=== PATIENT | female | born 1985 | race Two or more races ===

== ENCOUNTER 2017-07-31 20:24 | Emergency (ER) | payer OTHER ==
[~2017-07-31] VITALS: Ht 160 cm; Wt 74.1 kg
[2017-07-31 20:26] VITALS: BP 155/91
[2017-07-31] MEDS ORDERED: LORazepam 1MG TABLET ONE (20:44)
[2017-07-31] MEDS ORDERED: LORazepam 1MG TABLET PO ONE (21:00)
[2017-07-31] MEDS ORDERED: IBUPROFEN 800 MG TABLET ONE (21:50)
[2017-07-31] MEDS ORDERED: IBUPROFEN 800 MG TABLET PO ONE (22:00)
== END 2017-07-31 22:59 | disposition home or self-care (01) ==
LOC: ED 22:53
DX: F41.1 Generalized anxiety disorder (principal); I10 Essential (primary) hypertension
CPT/HCPCS: 93005; 99283

== ENCOUNTER 2018-06-29 00:59 | Emergency (ER) | payer OTHER ==
[~2018-06-29] VITALS: Ht 165.1 cm; Wt 76.1 kg
[2018-06-29] MEDS ORDERED: LOSA50TA14 PO (01:05)
--- NOTE | 2018-06-29 01:26 | NUR ---
PT HERE FOR PALPITATIONS THAT STARTED 30 MIN AGO. HR IMPROVED SINCE TRIAGE. XRAY AT BEDSIDE. 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 CALL LIGHT IN REACH
[2018-06-29] MEDS ORDERED: LORazepam 1MG TABLET PO ONE (01:30)
[2018-06-29] MEDS ORDERED: LORazepam 1MG TABLET ONE (01:32)
[2018-06-29 01:37] LABS: BASOPHILS # (AUTO) 0.02 x10^3/uL (0-0.1); BASOPHILS % (AUTO) 0 % (0-1); EOSINOPHILS # (AUTO) 0.08 x10^3/uL (0-0.4); EOSINOPHILS % (AUTO) 1 % (1-7); LYMPHOCYTES % (AUTO) 46 % (22-44); MD NO; MEAN CORPUSCULAR HEMOGLOBIN 30.2 pg (27.0-34.8); MEAN CORPUSCULAR HGB CONC 34.3 g/dL (32.4-35.8); MEAN CORPUSCULAR VOLUME 88.2 fL (80-100); MEAN PLATELET VOLUME 8.8 fL (7.4-10.4); MONOCYTES # (AUTO) 0.56 x10^3/uL (0.2-0.8); MONOCYTES % (AUTO) 7 % (2-9); NEUTROPHILS # (AUTO) 3.51 x10^3/uL (1.8-6.8); NEUTROPHILS % (AUTO) 45 % (42-75); PLATELET COUNT 226 x10^3/uL (130-400); RED BLOOD COUNT 4.54 x10^6/uL (3.82-5.3); RED CELL DISTRIBUTION WIDTH 13.5 % (9.6-15.2)
[2018-06-29 01:44] LABS: ALBUMIN 3.9 g/dL (3.4-5.0); ANION GAP 9 mmol/L (5-15); CALCIUM 8.7 mg/dL (8.5-10.1); CHLORIDE 109 mmol/L (98-107); CREATININE 0.61 mg/dL (0.55-1.02)
[2018-06-29 01:47] LABS: TROPONIN I < 0.015 ng/mL (0.000-0.045)
[2018-06-29 01:58] VITALS: BP 128/63
--- NOTE | 2018-06-29 01:59 | NUR ---
TASK RN: PT SITTING UP IN [facility] ELIAS NOTED. BP/SPO2/ECG MONITORING IN PLACE. NSR ON MONITOR. IMPROVEMENT IN BP NOTED FROM TRIAGE VS. SO AT BEDSIDE. Addendum: 06/29/18 at 0205 by LWEGENER *IMPROVEMENT IN BP AND HR NOTED.
--- NOTE | 2018-06-29 02:48 | NUR ---
Patient given discharge instructions and they have confirmed that they understand the instructions. Patient ambulatory with steady gait.
== END 2018-06-29 02:50 | disposition home or self-care (01) ==
LOC: ED 02:16
DX: R00.2 Palpitations (principal); F41.1 Generalized anxiety disorder; I10 Essential (primary) hypertension
CPT/HCPCS: 36415; 71045; 80048; 82040; 84484; 85025; 93005; 99284